=== PATIENT | female | born 1990 | race Caucasian/White ===

== ENCOUNTER 2023-03-27 14:06 | Emergency (ER) | payer MEDICAID, SELFPAY ==
[2023-03-27 14:16] VITALS: BP 156/101; PULSE 67; RESP 14; TEMP 36.9; O2SAT 99; BMI 17.9
--- NOTE | 2023-03-27 15:15 | W.ED.ABDPA2 ---
HPI - Abdominal Pain General: Chief Complaint: Abdominal Pain Stated Complaint: abd pain, N/V, chills Time Seen by Provider: 03/27/23 14:54 History of Present Illness: Patient is a 32-year-old female comes to the ED with abdominal pain. Symptoms started approximately 2 days ago. She started having abdominal pain in the left lower quadrant of her abdomen the pain is constant but the intensity of the pain waxes and wanes. She currently rates the pain a 7 out of 10. She says today the pain started radiating to her left flank and into left lower back. she started developing nausea and vomiting today. She has been having normal daily bowel movements. Denies any history of kidney stones. Denies any past abdominal surgeries. She states that she has never had abdominal pain like this in the past. Denies any fevers, dysuria or hematuria. Last menstrual period was March 14, 2023. Patient states that she does seem to get UTIs fairly frequently. Associated Symptoms: Reports nausea and vomiting; Denies chills, constipation, diarrhea, dysuria, fever(s), hematochezia and hematuria Review of Systems Const: Denies: fever(s), chills or fatigue Eyes: Denies: change in vision or eye discomfort ENMT: Denies: throat pain, odynophagia, nasal discharge or nasal congestion Card: Denies: chest pain, palpitations, edema, swelling of feet/ankles, dyspnea on exertion or orthopnea Resp: Denies: dyspnea, productive cough or non-productive cough GI: Reports: abdominal pain, nausea and vomiting; Denies: diarrhea, constipation or hematochezia : Reports: flank pain (Left flank); Denies: dysuria or hematuria Musc: Denies: neck pain, back pain or extremity swelling Skin/Breast: Denies: rash or new lesions Neuro: Denies: headache(s), numbness in extremities or weakness in extremities PFS ED PFSH: Medical History (Updated 03/27/23 @ 17:06 by MIN Gutierrez) No pertinent family history Surgical History (Updated 03/27/23 @ 15:19 by MIN Gutierrez) No pertinent past surgical history Physical Exam Const: COMMON NORMALS: no acute distress, patient oriented x3 and alert HENMT: COMMON NORMALS: normocephalic HEAD & SCALP: normocephalic MOUTH: Normal oral and palatal mucosa present THROAT: posterior oropharynx normal and uvula midline Neck/C-Spine: COMMON NORMALS: supple GENERAL: Yes normal visual inspection Resp: COMMON NORMALS: normal respiratory effort, No retractions, No use of accessory muscles and clear to auscultation bilaterally AUSCULTATION: clear to auscultation bilaterally Cardio: COMMON NORMALS: regular rate, regular rhythm, S1 normal heart sound present, S2 normal heart sound present, No gallops present (Cardio), No clicks present (Cardio), No murmurs present (Cardio) and Peripheral pulses 2+ throughout RATE: regular rate RHYTHM: regular rhythm HEART SOUNDS: S1 normal heart sound present and S2 normal heart sound present PERIPHERAL PULSES: Peripheral pulses 2+ throughout GI: COMMON NORMALS: Normal to inspection, nondistended, normoactive bowel sounds present, Soft to palpation and no masses PALPATION: Yes Soft to palpation, Yes Tenderness to palpation present (GI) Details: LLQ and Yes Bladder palpation abnormal : BLADDER/KIDNEY EXAM: Yes Bladder palpation abnormal Bladder abnormal details: tender and Yes CVA tenderness Back/Pelvis: GENERAL BACK: Yes CVA tenderness CVA tenderness: left Extremity: COMMON NORMALS: normal to inspection Neuro: COMMON NORMALS: patient oriented x3 SENSORIUM/ORIENTATION: Yes alert GAIT: Yes Normal gait present Skin: GENERAL SKIN EXAM: dry skin Course Vital Signs: Vital signs: Vital Signs Temperature 98.5 F 03/27/23 14:16 Pulse Rate 67 03/27/23 14:16 Respiratory Rate 14 03/27/23 14:16 Blood Pressure 146/93 03/27/23 17:18 Pulse Oximetry 99 03/27/23 14:16 Oxygen Delivery Me thod Room Air 03/27/23 14:16 MDM - Abdominal Pain Medical Decision Making Patient is a 32-year-old female comes to the ED with abdominal pain. Symptoms started approximately 2 days ago. She started having abdominal pain in the left lower quadrant of her abdomen the pain is constant but the intensity of the pain waxes and wanes. She currently rates the pain a 7 out of 10. She says today the pain started radiating to her left flank and into left lower back. she started developing nausea and vomiting today. She has been having normal daily bowel movements. Denies any history of kidney stones. Denies any past abdominal surgeries. She states that she has never had abdominal pain like this in the past. Denies any fevers, dysuria or hematuria. Last menstrual period was March 14, 2023. Vitals are stable. Patient appears healthy Nontoxic and in no acute distress. She has left lower quadrant abdominal tenderness, bladder tenderness and some left CVA tenderness. Rest of exam is benign. White blood cell count 9 and the rest of CBC and CMP are unremarkable. UA shows signs of a UTI. hCG negative. CT of abdomen pelvis shows a large staghorn calculus left renal pelvis with no hydronephrosis or stranding seen around kidney. There are signs of subtle left urothelial thickening and periureteral edema which correlates with a UTI. Patient was given 1 L of IV fluids, pain meds, nausea meds and Rocephin while here in the ED. Symptoms controlled patient was stable for discharge home. I placed an order with case management for patient to be referred to urologist for follow-up on large staghorn calculus in the left renal pelvis. She was sent home with a prescription for nausea med, pain med and an antibiotic. She is diagnosed with a UTI and staghorn calculus. Strict return to ED precautions given. Patient understood and agreed with plan. Lab Data I reviewed the patient's lab results. 03/27/23 14:48 03/27/23 14:48 Labs/Radiology: Radiology Impressions Abdomen/Pelvis CT 03/27/23 16:07 IMPRESSION: 1. Large staghorn calculus in the left renal pelvis. No hydronephrosis. 2. Subtle left urothelial thickening and periureteral edema. Correlate with urinalysis to exclude urinary tract infection. 3. Additional findings, as above. Laboratory Results WBC 9.0 10^3/uL (4.0-10.0) 03/27/23 14:48 RBC 4.34 10^6/uL (4.1-5.3) 03/27/23 14:48 Hgb 14.1 g/dL (11.5-15.3) 03/27/23 14:48 Hct 43.2 % (37.0-47.0) 03/27/23 14:48 MCV 99.5 fl (81-99) H 03/27/23 14:48 MCH 32.5 pg (28.0-34.0) 03/27/23 14:48 MCHC 32.6 g/dL (30.0-36.0) 03/27/23 14:48 RDW 11.7 % (12.1-15.1) L 03/27/23 14:48 Plt Count 217 10^3/cmm (130-400) 03/27/23 14:48 MPV 11.6 fL (7.4-10.4) H 03/27/23 14:48 Neut % (Auto) 62.6 % 03/27/23 14:48 Lymph % (Auto) 30.0 % 03/27/23 14:48 Cook % (Auto) 5.8 % 03/27/23 14:48 Eos % (Auto) 0.8 % 03/27/23 14:48 Baso % (Auto) 0.6 % 03/27/23 14:48 Neut # (Auto) 5.65 10^3/uL (1.8-7.7) 03/27/23 14:48 Lymph # (Auto) 2.7 10^3/uL (0.8-4.8) 03/27/23 14:48 Cook # (Auto) 0.5 10^3/uL (0.2-0.9) 03/27/23 14:48 Eos # (Auto) 0.1 10^3/uL (0.0-0.8) 03/27/23 14:48 Baso # (Auto) 0.1 10^3/uL (0.0-0.1) 03/27/23 14:48 Nucleated RBC % (auto) 0 % 03/27/23 14:48 Nucleated RBCs # 0.0 /100WBC 03/27/23 14:48 Sodium 133 mmol/L (136-145) L 03/27/23 14:48 Potassium 3.6 mmol/L (3.5-5.1) 03/27/23 14:48 Chloride 98 mmol/L (98-107) 03/27/23 14:48 Carbon Dioxide 25 mmol/L (22-29) 03/27/23 14:48 Anion Gap 13.6 (5-19) 03/27/23 14:48 BUN 8 mg/dL (6-20) 03/27/23 14:48 Creatinine 0.6 mg/dL (0.5-0.9) 03/27/23 14:48 GFR Calculation 114.4 mL/min (90-130) 03/27/23 14:48 Glucose 77 mg/dL (65-115) 03/27/23 14:48 Calculated Osmolality 273 mOsm/kg (285-295) L 03/27/23 14:48 Calcium 8.7 mg/dL (8.5-10.5) 03/27/23 14:48 Total Bilirubin 0.5 mg/dL (0.15-1.2) 03/27/23 14:48 AST 14 U/L (0-32) 03/27/23 14:48 ALT 8 U/L (0-33) 03/27/23 14:48 Alkaline Phosphatase 77 U/L (35-105) 03/27/23 14:48 Total Protein 7.3 g/dL (6.6-8.7) 03/27/23 14:48 Albumin 4.4 g/dL (3.5-5.2) 03/27/23 14:48 Globulin 2.9 g/dL (1.3-4.6) 03/27/23 14:48 Lipase 38 U/L (13-60) 03/27/23 14:48 HCG, Qual Negative (Negative) 03/27/23 14:48 Urine Color Dark yellow (Yellow) 03/27/23 15:31 Urine Appearance Hazy (CLEAR) A 03/27/23 15:31 Urine pH 7 (5-7) 03/27/23 15:31 Ur Specific [place] 1.015 (1.005-1.030) 03/27/23 15:31 Urine Protein 1+ (Negative) H 03/27/23 15:31 Urine Glucose (UA) Norm (Normal) 03/27/23 15:31 Urine Ketones 1+ (Negative) H 03/27/23 15:31 Urine Blood 3+ (Negative) H 03/27/23 15:31 Urine Nitrate Positive (Negative) H 03/27/23 15:31 Urine Bilirubin Neg (Negative) 03/27/23 15:31 Urine Urobilinogen Norm mg/dL (Negative) 03/27/23 15:31 Ur Leukocyte Esterase 2+ (Negative) H 03/27/23 15:31 Urine RBC 10-15 /hpf (0-2) H 03/27/23 15:31 Urine WBC 55-80 /hpf (0-5) H 03/27/23 15:31 Ur Squamous Epith Cells 0-4 /hpf (0-5) H 03/27/23 15:31 Amorphous Sediment Not Reportable 03/27/23 15:31 Urine Bacteria 3+ /hpf (NONE) H 03/27/23 15:31 Discharge Plan Discharge Patient Disposition: Home Clinical Impression: Staghorn renal calculus UTI (urinary tract infection) Qualifiers: Urinary tract infection type: acute cystitis Hematuria presence: with hematuria Qualified Code(s): N30.01 - Acute cystitis with hematuria Condition: Stable Prescriptions: New Bactrim DS 800-160 mg tablet 1 tab PO BID 7 Days Qty: 14 0RF ondansetron 4 mg tablet,disintegrating 4 mg PO Q8H PRN (Reason: nausea and vomiting) Qty: 20 0RF Discharge Orders: Discharge ED (Routine); Ordered 03/27/23 Ordered By: Gera Mott Discharge Diet: Regular Discharge Activity: Increase activity as tolerated Patient Instructions: Kidney Stones, Urinary Tract Infection in Women (DC) Activity Restrictions/Additional Instructions: Follow-up with medical provider as directed. Case management should be contacted in the next several days to set up an appointment with urologist for follow-up on staghorn renal stone. Take medications as prescribed. Drink plenty of fluids and stay hydrated. Return to the ER or your medical provider if condition worsens. Please read and understand discharge instructions. Thank you for choosing [facility] for your healthcare needs today. Please realize this is an emergency room and that we are providing you with a medical screening exam and this may not be complete and all inclusive of all the testing and or work up that you may need to determine your ailment or severity of your illness. It is very important that you follow up as instructed or that you return to the Emergency Department should you have concerns or if your condition changes or worsens in any way. Coding Level of Care Code ED [employer] for Shira Escobar
[2023-03-27] MEDS: ondansetron 2 mg/ML SDV 2 mL 4 MG IVP (15:24)
[2023-03-27 15:26] LABS: Basophils # 0.1 10^3/uL (0.0-0.1); Basophils % 0.6 %; Eosinophils # 0.1 10^3/uL (0.0-0.8); Eosinophils % 0.8 %; Hematocrit 43.2 % (37.0-47.0); Hemoglobin 14.1 g/dL (11.5-15.3); Lymphocytes # 2.7 10^3/uL (0.8-4.8); Mean Corpuscular HGB Conc 32.6 g/dL (30.0-36.0); Mean Corpuscular Hemoglobin 32.5 pg (28.0-34.0); Mean Corpuscular Volume 99.5 fl (81-99); Mean Platelet Volume 11.6 fL (7.4-10.4); Monocytes # 0.5 10^3/uL (0.2-0.9); Monocytes % 5.8 %; Neutrophils # 5.65 10^3/uL (1.8-7.7); Neutrophils % 62.6 %; Nucleated Red Blood Cells % 0 %; Platelet Count 217 10^3/cmm (130-400); Red Blood Count 4.34 10^6/uL (4.1-5.3); Red Cell Distribution Width 11.7 % (12.1-15.1)
[2023-03-27] MEDS: sodium chloride 0.9% 1,000 ML 999 ML IV (15:27)
[2023-03-27] MEDS: morphine 4 mg/mL SDV 1 mL IVP (15:29)
[2023-03-27 15:30] LABS: HCG, Serum Qual Negative (Negative)
[2023-03-27 15:35] LABS: Alanine Aminotransferase 8 U/L (0-33); Albumin Level 4.4 g/dL (3.5-5.2); Alkaline Phosphatase 77 U/L (35-105); Anion Gap 13.6 (5-19); Aspartate Amino Transferase 14 U/L (0-32); Blood Urea Nitrogen 8 mg/dL (6-20); Calcium 8.7 mg/dL (8.5-10.5); Carbon Dioxide 25 mmol/L (22-29); Chloride 98 mmol/L (98-107); Globulin 2.9 g/dL (1.3-4.6); Glomerular Filtration Rate 114.4 mL/min (90-130); Glucose 77 mg/dL (65-115); Lipase 38 U/L (13-60); Osmolality Calculated 273 mOsm/kg (285-295); Potassium 3.6 mmol/L (3.5-5.1); Sodium 133 mmol/L (136-145); Total Bilirubin 0.5 mg/dL (0.15-1.2); Total Protein 7.3 g/dL (6.6-8.7)
--- NOTE | 2023-03-27 16:07 | CTR_ITS ---
PROCEDURE INFORMATION: Exam: CT Abdomen And Pelvis Without Contrast Exam date and time: 03/27/2023 4:19 PM Age: 32 years old Clinical indication: Abdominal pain; Flank; Left; Additional info: Left flank pain, n/v TECHNIQUE: Imaging protocol: Computed tomography of the abdomen and pelvis without contrast. Axial, coronal and sagittal reformatted images were created and reviewed. Radiation optimization: All CT scans at this facility use at least one of these dose optimization techniques: automated exposure control; mA and/or kV adjustment per patient size (includes targeted exams where dose is matched to clinical indication); or iterative reconstruction. REPORTING DATA: Count of CT and Cardiac NM exams in prior 12 months: This patient has received 0 known CTs and 0 known cardiac nuclear medicine studies in the 12 months prior to the current study. COMPARISON: No relevant prior studies available. RADIATION DOSE METRICS: Total DLP (mGy-cm): 266.27 FINDINGS: Liver: Mild nonspecific periportal edema. Gallbladder and bile ducts: No radiodense gallstones. No biliary ductal dilatation. Pancreas: Unremarkable. Spleen: Unremarkable. Adrenal glands: Normal. No mass. Kidneys and ureters: Left renal cortical scarring. Nonobstructing left renal calculi. Large staghorn calculus in the left renal pelvis. Subtle left urothelial thickening and periureteral edema. No hydronephrosis. Stomach and bowel: No bowel wall thickening. No obstruction. No pneumatosis. Appendix: Normal. Intraperitoneal space: Trace nonspecific free pelvic fluid, likely physiologic. No organized fluid collection. No free air. Vasculature: Unremarkable. No aneurysm. Lymph nodes: No pathologically enlarged lymph nodes. Urinary bladder: Unremarkable as visualized. Reproductive: Unremarkable. Bones/joints: No acute osseous abnormality. Soft tissues: Unremarkable. CT/CT kidney stone [id number] IMPRESSION: 1. Large staghorn calculus in the left renal pelvis. No hydronephrosis. 2. Subtle left urothelial thickening and periureteral edema. Correlate with urinalysis to exclude urinary tract infection. 3. Additional findings, as above.
[2023-03-27 16:16] LABS: Add Urine Microscopic? YES; Bilirubin Urine Neg (Negative); Blood Urine 3+ (Negative); Glucose Urine UA Norm (Normal); Ketones Urine 1+ (Negative); Leukocyte Esterase Urine 2+ (Negative); Nitrate Urine Positive (Negative); Protein Urine 1+ (Negative); Specific Gravity, Urine 1.015 (1.005-1.030); Urine Appearance Hazy (CLEAR); Urine Color Dark Yellow (Yellow); Urobilinogen Urine Norm (Negative); WBC Urine 55-80 /hpf (0-5); pH Urine 7 (5-7)
[2023-03-27 16:17] LABS: Add Urine Culture? Yes; Bacteria Urine 3+ /hpf; Squamous Epithelial Cell Urine 0-4 /hpf (0-5)
[2023-03-27] MEDS: HYDROmorphone 1 mg/mL INJ 1 mL IVP (17:15)
[2023-03-27] MEDS: cefTRIAXone 1,000 MG in sodium chloride 0.9% (plus) 50 ML 100 MG IV (17:17)
[2023-03-27 17:18] VITALS: BP 146/93
--- NOTE | 2023-03-29 14:37 | DCPLANNER ---
Addendum entered by Dorita Springer 03/30/23 08:45: him manager called [facility] to confirm that clinic had received patients information. him manager was told that facility had received patients information, it will be reviewed, and clinic will call patient with appointment information. Original Note: him manager had message to schedule a follow up appointment for patient with urology. him manager called patient due to [facility] not having a urologist, to confirm where patient would like referral sent. Patient stated that she would like the referral sent to [facility]. him manager faxed patients information, it will be reviewed and clinic will call patient with appointment information.
== END 2023-03-27 17:34 | disposition home or self-care (01) ==
PROVIDERS: Emergency Provider Physician Assistant
DX: N20.0 Calculus of kidney (principal); N30.01 Acute cystitis with hematuria
CPT/HCPCS: 74176; 80053; 81001; 83690; 84703; 85025; 87077; 87086; 87186; 96365; 96375; 99285; J0696; J1170; J2270; J2405; J7030

== ENCOUNTER 2023-06-04 11:31 | Emergency (ER) | payer MEDICAID, SELFPAY ==
[2023-06-04 11:55] LABS: Basophils % 0.4 %; Eosinophils # 0.3 10^3/uL (0.0-0.8); Eosinophils % 2.7 %; Hematocrit 36.7 % (36-47); Lymphocytes # 2.2 10^3/uL (0.8-4.8); Lymphocytes % 24.4 %; Mean Corpuscular HGB Conc 33.8 g/dL (30-55); Mean Corpuscular Hemoglobin 32.2 pg (27-33); Mean Corpuscular Volume 95.3 fl (85-98); Mean Platelet Volume 10.8 fL (7.4-10.4); Monocytes # 0.4 10^3/uL (0.2-0.9); Monocytes % 4.8 %; Neutrophils # 6.11 10^3/uL (1.8-7.7); Neutrophils % 67.3 %; Nucleated Red Blood Cells % 0 %; Platelet Count 187 10^3/cmm (157-399); Red Blood Count 3.85 10^6/uL (3.85-5.65); Red Cell Distribution Width 11.7 % (12.1-15.1)
[2023-06-04 11:59] VITALS: BP 107/75; PULSE 103; RESP 17; TEMP 36.8; O2SAT 97; BMI 18.1
[2023-06-04 12:12] LABS: Alanine Aminotransferase 6 U/L (0-33); Albumin Level 4.2 g/dL (3.5-5.2); Alkaline Phosphatase 53 U/L (35-105); Anion Gap 12.8 (5-19); Aspartate Amino Transferase 11 U/L (0-32); Blood Urea Nitrogen 7 mg/dL (6-20); Carbon Dioxide 24 mmol/L (22-29); Chloride 100 mmol/L (98-107); Globulin 2.8 g/dL (1.3-4.6); Glomerular Filtration Rate 141.2 mL/min (90-130); Glucose 109 mg/dL (65-115); Lipase 31 U/L (13-60); Osmolality Calculated 275 mOsm/kg (285-295); Potassium 3.8 mmol/L (3.5-5.1); Sodium 133 mmol/L (136-145); Total Bilirubin 0.4 mg/dL (0.15-1.2)
[2023-06-04 12:39] LABS: Add Urine Microscopic? YES; Bilirubin Urine Neg (Negative); Blood Urine 3+ (Negative); Glucose Urine UA Norm (Normal); Ketones Urine Negative (Negative); Leukocyte Esterase Urine 2+ (Negative); Nitrate Urine Negative (Negative); Protein Urine 2+ (Negative); Urine Appearance Cloudy (CLEAR); Urine Color Yellow (Yellow); Urobilinogen Urine Norm (Negative); pH Urine 7 (5-7)
[2023-06-04 12:40] LABS: Add Urine Culture? Yes; Amorphous Sediment Urine 1+ /hpf; Bacteria Urine TRACE /hpf; Mucus Urine 1+ /hpf; RBC Urine >100 /hpf (0-2); Squamous Epithelial Cell Urine 0-4 /hpf (0-5); WBC Urine 80-100 /hpf (0-5)
--- NOTE | 2023-06-04 12:52 | US_ITS ---
WS: [id number] EARLY OBSTETRICAL ULTRASOUND (<14 WEEKS). HISTORY: LLQ pain COMPARISON: None available. Single intrauterine gestational sac is identified. Cardiac activity at 160 BPM. Sartell-rump length christophe sures 5.2 cm which corresponds to a gestation of 11w6d. Normal-appearing yolk sac and amnion demonstr ated. No subchorionic hemorrhage. No free fluid. Normal size ovaries with no mass. Corpus luteal cyst RIGHT ovary measures 1.4 x 1.5 x 1.8 cm. Normal vascularity within each ovary. IMPRESSION: 1. Single intrauterine gestation of 11 weeks 6 days with an EDC of 12/18/2023. 2. Normal cardiac activity. 3. No LEFT lower quadrant abnormality. Normal vascularity to the ovary.
--- NOTE | 2023-06-04 12:52 | US_ITS ---
WS: [id number] RENAL ULTRASOUND HISTORY: LLQ pain, patient is . COMPARISON: None available. TECHNIQUE: 2-D and color Doppler imaging of the kidney submitted. Right kidney: 10.8 cm x 5.3 cm x 5.1 cm. Cortex: 1.7 cm Normal echogenicity with no hydronephrosis or mass. Left kidney: 7.5 cm x 4.0 cm x 4.0 cm. Cortex: 1.0 cm Moderate atrophy of the kidney. There is a dilated renal pelvis with increased vascularity. The stagh orn calculus previously described is not as readily apparent by ultrasound. The amount of fluid in th e central pelvis appears to be increased since the prior CT. Aorta: Normal. Urinary Bladder: Urinary bladder is nondistended. Within the urinary bladder there is a rounded calci fication measuring 1.8 x 1.4 x 1.7 cm. No calcification was noted within the bladder on the prior CT from 03/27/2023 IMPRESSION: 1. Mild LEFT hydronephrosis. There is increased vascularity involving the central LEFT kidney. Correl ate for UTI and possible pyelonephritis. 2. Negative RIGHT kidney. 3. Rounded echogenic mass within the urinary bladder that was not present on the recent CT could pote ntially be a recently passed calcification but this is a very large calcification to have been excret ed through the ureter.
--- NOTE | 2023-06-04 12:55 | ED_ITS ---
HPI - Female Genitourinary General: Chief complaint: Urogenital-Female Stated complaint: possible kidney stone,N/V 13 weeks preg Time Seen by Provider: 06/04/23 12:08 Source: patient Mode of arrival: ambulatory Limitations: no limitations History of Present Illness: Patient presents to the emergency department today for evaluation treatment of left-sided abdominal and left lower quadrant abdominal pain. Patient states last few days she has noticed the pain which has increased in intensity. Patien t reports very dark urine and suspected blood in her urine. Patient has been nauseated when the pain is at its worst. Patient has a known staghorn calculi in the left kidney with other smaller, renal stones noted on CT examination from March of this year. She states that she has seen a urologist in [place] and is supposed to have surgery when she reaches her second trimester. Patient states her SPLITTER HAND is also in [place] but she has not had an initial OB appointment or ultrasound to confirm IUP yet. Date of Last Menstrual Period: 03/14/23 Review of Systems General: Reports: 10 or more systems reviewed and unremarkable except in HPI and below PFSH ED PFSH: Medical History No pertinent family history Surgical History No pertinent past surgical history Female Reproductive History: Date of last menstrual period: 03/14/23 Physical Exam Const: COMMON NORMALS: no acute distress, patient oriented x3 and alert HENMT: COMMON NORMALS: normocephalic, atraumatic, hearing grossly normal bilaterally and moist oral mucous membranes HEAD & SCALP: normocephalic and atraumatic Eye: COMMON NORMALS: Equal, round and reactive pupils present, EOMs intact bilaterally and conjunctivae normal CONJUNCTIVA: Yes conjunctivae normal PUPIL: Yes Equal, round and reactive pupils present Neck/C-Spine: COMMON NORMALS: full ROM and no JVD Lymph: LYMPHATIC: no lymphadenopathy noted Resp: COMMON NORMALS: normal respiratory effort, No retractions, No use of accessory muscles and clear to auscultation bilaterally AUSCULTATION: clear to auscultation bilaterally Cardio: COMMON NORMALS: no JVD, regular rate and regular rhythm RATE: regular rate RHYTHM: regular rhythm GI: OTHER: Normoactive bowel sounds throughout. Patient is tender on palpation to the left lower abdomen with minimal discomfort along the left lateral abdomen. No right lower quadrant tenderness. Abdomen is soft. Patient with small frame. : COMMON NORMALS: Yes no CVA tenderness BLADDER/KIDNEY EXAM: Yes no CVA tenderness Back/Pelvis: COMMON NORMALS: no CVA tenderness, no thoracic nor lumbar ten derness and thoraco-lumbar ROM normal Extremity: COMMON NORMALS: normal to inspection, full ROM and capillary refill normal Neuro: COMMON NORMALS: patient oriented x3 SENSORIUM/ORIENTATION: Yes alert Psych: COMMON NORMALS: mental status grossly normal, Normal thought process present, cooperative, normal affect and activity/motor behavior normal THOUGHT PROCESS: Normal thought process present Skin: COMMON NORMALS: no rashes or lesions noted and no wounds GENERAL SKIN EXAM: no rashes or lesions noted Course Vital Signs: Vital signs: Vital Signs Temperature 98.2 F 06/04/23 11:59 Pulse Rate 62 06/04/23 15:19 Respiratory Rate 18 06/04/23 15:19 Blood Pressure 135/88 06/04/23 15:19 Pulse Oximetry 100 06/04/23 15:19 Oxygen Delivery Me thod Room Air 06/04/23 15:19 MDM - Female Medical Decision Making Lab work today is generally unremarkable. No signs of an elevated white blood cell count. Patient does have quite a bit of blood in her urinalysis but, no signs of significant bacterial burden. Imaging revealed intrauterine with a heart tone of 160. No signs of issues with the left adnexal region. Ultrasound still shows signs of left renal calculi. There is signs of hydronephrosis to the left kidney. There is noted calcification within the bladder not present on previous imaging. I discussed all of this with the patient. Discussed the possibility of having recently passed a kidney stone and still having residual pain and bleeding as they did not see any stone in the ureter. I did discuss with her findings of a bladder stone for which she needs to let her urologist know. Strict return precautions through the weekend were given for any acute worsening otherwise, follow-up with OB/urology next week. Patient verbalizes understanding and agreement to treatment plan. Differential Diagnosis Likely abdominal pain and calculus of kidney; Unlikely acute appendicitis, constipation, diverticulitis, gastroenteritis or small bowel obstruction Lab Data 06/04/23 11:47 06/04/23 11:47 Laboratory Results WBC 9.10 10^3/uL (3.29-11.43) 06/04/23 11:47 RBC 3.85 10^6/uL (3.85-5.65) 06/04/23 11:47 Hgb 12.40 g/dL (11.27-16.99) 06/04/23 11:47 Hct 36.7 % (36-47) 06/04/23 11:47 MCV 95.3 fl (85-98) 06/04/23 11:47 MCH 32.2 pg (27-33) 06/04/23 11:47 MCHC 33.8 g/dL (30-55) 06/04/23 11:47 RDW 11.7 % (12.1-15.1) L 06/04/23 11:47 Plt Count 187 10^3/cmm (157-399) 06/04/23 11:47 MPV 10.8 fL (7.4-10.4) H 06/04/23 11:47 Neut % (Auto) 67.3 % 06/04/23 11:47 Lymph % (Auto) 24.4 % 06/04/23 11:47 [place] % (Auto) 4.8 % 06/04/23 11:47 Eos % (Auto) 2.7 % 06/04/23 11:47 Baso % (Auto) 0.4 % 06/04/23 11:47 Neut # (Auto) 6.11 10^3/uL (1.8-7.7) 06/04/23 11:47 Lymph # (Auto) 2.2 10^3/uL (0.8-4.8) 06/04/23 11:47 [place] # (Auto) 0.4 10^3/uL (0.2-0.9) 06/04/23 11:47 Eos # (Auto) 0.3 10^3/uL (0.0-0.8) 06/04/23 11:47 Baso # (Auto) 0.0 10^3/uL (0.0-0.1) 06/04/23 11:47 Nucleated RBC % (auto) 0 % 06/04/23 11:47 Nucleated RBCs # 0.0 /100WBC 06/04/23 11:47 Sodium 133 mmol/L (136-145) L 06/04/23 11:47 Potassium 3.8 mmol/L (3.5-5.1) 06/04/23 11:47 Chloride 100 mmol/L (98-107) 06/04/23 11:47 Carbon Dioxide 24 mmol/L (22-29) 06/04/23 11:47 Anion Gap 12.8 (5-19) 06/04/23 11:47 BUN 7 mg/dL (6-20) 06/04/23 11:47 Creatinine 0.5 mg/dL (0.5-0.9) 06/04/23 11:47 GFR Calculation 141.2 mL/min (90-130) H 06/04/23 11:47 Glucose 109 mg/dL (65-115) 06/04/23 11:47 Calculated Osmolality 275 mOsm/kg (285-295) L 06/04/23 11:47 Calcium 9.0 mg/dL (8.5-10.5) 06/04/23 11:47 Total Bilirubin 0.4 mg/dL (0.15-1.2) 06/04/23 11:47 AST 11 U/L (0-32) 06/04/23 11:47 ALT 6 U/L (0-33) 06/04/23 11:47 Alkaline Phosphatase 53 U/L (35-105) 06/04/23 11:47 Total Protein 7.0 g/dL (6.6-8.7) 06/04/23 11:47 Albumin 4.2 g/dL (3.5-5.2) 06/04/23 11:47 Globulin 2.8 g/dL (1.3-4.6) 06/04/23 11:47 Lipase 31 U/L (13-60) 06/04/23 11:47 Urine Color Yellow (Yellow) 06/04/23 12:22 Urine Appearance Cloudy (CLEAR) A 06/04/23 12:22 Urine pH 7 (5-7) 06/04/23 12:22 Ur Specific [place] 1.010 (1.005-1.030) 06/04/23 12:22 Urine Protein 2+ (Negative) H 06/04/23 12:22 Urine Glucose (UA) Norm (Normal) 06/04/23 12:22 Urine Ketones Negative (Negative) 06/04/23 12:22 Urine Blood 3+ (Negative) H 06/04/23 12:22 Urine Nitrate Negative (Negative) 06/04/23 12:22 Urine Bilirubin Neg (Negative) 06/04/23 12:22 Urine Urobilinogen Norm mg/dL (Negative) 06/04/23 12:22 Ur Leukocyte Esterase 2+ (Negative) H 06/04/23 12:22 Urine RBC >100 /hpf (0-2) H 06/04/23 12:22 Urine WBC 80-100 /hpf (0-5) H 06/04/23 12:22 Ur Squamous Epith Cells 0-4 /hpf (0-5) H 06/04/23 12:22 Amorphous Sediment 1+ /hpf 06/04/23 12:22 Urine Bacteria Trace /hpf (NONE) 06/04/23 12:22 Urine Mucus 1+ /hpf 06/04/23 12:22 All radiology interpretation(s) finalized by discharge Discharge Plan Discharge Patient Disposition: Home Clinical Impression: Abdominal pain during intrauterine , Hematuria Condition: Stable Prescriptions: No Action oxybutynin chloride 5 mg tablet 5 mg PO TID PRN (Reason: Bladder Spasms) Discharge Orders: Discharge ED (Routine); Ordered 06/04/23 Ordered By: Josselin Godoy Discharge Diet: Usual diet Discharge Activity: Increase activity as tolerated Patient Instructions: Kidney Stones (ED), Ureteral Stones (ED), Bladder Stones (ED) Activity Restrictions/Additional Instructions: Lab work today is generally unremarkable for any acute concerns. Urinalysis shows quite a bit of blood but no acute concerns for infection. Ultrasound reveals a bladder stone but no signs of any active ureteral stone. It is my suspicion that you have recently passed a kidney stone-especially with the blood still found in your urine and the residual pain from passing the stone as well. We encourage you to continue pushing your fluids. Please notify your urologist of the finding for bladder stone and suspicion for recent passing of kidney stone. However, if for any reason you worsen through the weekend including sudden onset fever, profuse vomiting, change or worsening of pain, any abdominal cramping, or vaginal bleeding all needs to be seen and reevaluated here in the ER. Coding Level of Care Code ED Interactive Video Technician for Shira Escobar
[2023-06-04 13:15] VITALS: BP 129/75; PULSE 66; RESP 18; O2SAT 96
[2023-06-04] MEDS: metoclopramide 5 mg/mL SDV 2 mL 10 MG IVP (13:15)
[2023-06-04 13:17] VITALS: RESP 18; O2SAT 98
[2023-06-04] MEDS: morphine 4 mg/mL SDV 1 mL IVP (13:17)
[2023-06-04 14:48] VITALS: BP 101/70; PULSE 51; RESP 16; O2SAT 97
[2023-06-04 15:19] VITALS: BP 135/88; PULSE 62; RESP 18; O2SAT 100
== END 2023-06-04 15:21 | disposition home or self-care (01) ==
PROVIDERS: Emergency Medicine; Emergency Provider Physician Assistant
DX: O26.891 Other specified pregnancy related conditions, first trimester (principal); R10.32 Left lower quadrant pain; R31.9 Hematuria, unspecified; Z3A.13 13 weeks gestation of pregnancy; Z3A.11 11 weeks gestation of pregnancy
CPT/HCPCS: 36415; 76770; 76801; 80053; 81001; 83690; 85025; 87086; 96374; 96375; 99284; J2270; J2765